=== PATIENT | male | born 1980 | race Hispanic/Latino ===

== ENCOUNTER 2017-12-04 14:02 | Emergency (ER) | payer OTHER, MEDICARE ==
[2017-12-04 19:44] LABS: Bilirubin,Urine NEG (Negative); Blood,Urine SM (Negative); Color,Urine Yellow (Yellow); Urobilinogen,Urine < 2.0 mg/dL (<2.0)
--- NOTE | 2017-12-04 20:06 | Emergency Department Report ---
ED General Adult HPI - General Chief complaint: Psych Stated complaint: SUICIDAL ATTEMPT Time Seen by Provider: 12/04/17 19:42 Source: patient Mode of arrival: Ambulatory Limitations: No Limitations - History of Present Illness Initial comments: This is a 37-year-old male who is previously unknown to this provider, has a past medical history of right-sided cadaveric renal transplant, on immune modulating medication, who presents to the ER with resolved suicidality. The patient indicates that his threatened to divorce him, this made him very upset and he thought about shooting himself with a gun. He currently denies headache, neck pain, chest pain, abdominal pain, shortness of breath,, cephalic , he indicates that he is not suicidal at this time. He further indicates he has not tried to overdose, and he also indicates that he feels remorseful about the "events that happened." -: Sudden Consistency: now resolved Improves with: none Worsens with: none Associated Symptoms: denies: confusion, chest pain, cough, diaphoresis, fever/ chills, headaches, loss of appetite, malaise, nausea/vomiting, rash, seizure, shortness of breath, syncope, weakness - Related Data Home Medications Medication Instructions Recorded Confirmed Last Taken Metoprolol [Lopressor TAB] 1 tab PO BID 12/04/17 12/04/17 12/04/17 09:00 Mycophenolate [Cellcept] 2 tab PO BID 12/04/17 12/04/17 12/04/17 09:00 NIFEdipine [Nifedipine ER] 60 mg PO BID 12/04/17 12/04/17 12/04/17 09:00 Prednisone 5 mg PO DAILY 12/04/17 12/04/17 12/04/17 09:00 Sod Phos Di, [place]/K Phos [place] 2 tab PO 3XW 12/04/17 12/04/17 12/04/17 09:00 [Phospho-Crissy 250 Neutral Tab] Tacrolimus [Prograf] 5 mg PO Q12H 12/04/17 12/04/17 12/04/17 09:00 Allergies Allergy/AdvReac Type Severity Reaction Status Date / Time No Known Allergies Allergy Verified 06/21/13 18:22 ED Review of Systems ROS: Stated complaint: SUICIDAL ATTEMPT Other details as noted in HPI Comment: All other systems reviewed and negative Psychiatric: depression. denies: anxiety, auditory hallucinations, visual hallucinations, homicidal thoughts ED Past Medical Hx - Past Medical History Hx Hypertension: Yes (2007, CURRENTLY UNCONTROLLED) Hx Renal Disease: Yes (2009) Hx Seizures: No Additional medical history: anemia - Surgical History Additional Surgical History: hernia repair, Kidney transplant - Social History Smoking Status: Never Smoker Substance Use Type: Alcohol - Medications Home Medications: Home Medications Medication Instructions Recorded Confirmed Last Taken Type Metoprolol [Lopressor TAB] 1 tab PO BID 12/04/17 12/04/17 12/04/17 09:00 History Mycophenolate [Cellcept] 2 tab PO BID 12/04/17 12/04/17 12/04/17 09:00 History NIFEdipine [Nifedipine ER] 60 mg PO BID 12/04/17 12/04/17 12/04/17 09:00 History Prednisone 5 mg PO DAILY 12/04/17 12/04/17 12/04/17 09:00 History Sod Phos Di, [place]/K Phos [place] 2 tab PO 3XW 12/04/17 12/04/17 12/04/17 09:00 History [Phospho-Crissy 250 Neutral Tab] Tacrolimus [Prograf] 5 mg PO Q12H 12/04/17 12/04/17 12/04/17 09:00 History ED Physical Exam - General Limitations: No Limitations General appearance: alert, in no apparent distress - Head Head exam: Present: atraumatic, normocephalic - Eye Eye exam: Present: normal appearance, EOMI. Absent: nystagmus - ENT ENT exam: Present: normal exam, normal orophraynx, mucous membranes moist, normal external ear exam - Neck Neck exam: Present: normal inspection, full ROM - Respiratory Respiratory exam: Present: normal lung sounds bilaterally. Absent: respiratory distress - Cardiovascular Cardiovascular Exam: Present: regular rate, normal rhythm, normal heart sounds. Absent: systolic murmur, diastolic murmur, rubs, gallop - GI/Abdominal GI/Abdominal exam: Present: soft, normal bowel sounds. Absent: distended, tenderness, guarding, rebound, rigid, pulsatile mass - Rectal Rectal exam: Present: deferred - Extremities Exam Extremities exam: Present: normal inspection, full ROM, normal capillary refill. Absent: pedal edema, joint swelling, calf tenderness - Back Exam Back exam: Present: normal inspection, full ROM. Absent: tenderness, CVA tenderness (R), paraspinal tenderness, vertebral tenderness - Neurological Exam Neurological exam: Present: alert, oriented X3, CN II-XII intact, normal gait, other (Extraocular movements intact. Tongue midline. No facial droop. Facial sensation intact to light touch in the V1, V2, V3 distribution bilaterally. 5 and 5 strength in 4 extremities.. Sensation is intact to light touch in 4 extremities.). Absent: motor sensory deficit - Psychiatric Psychiatric exam: Present: normal affect, normal mood - Skin Skin exam: Present: warm, dry, intact, normal color. Absent: rash ED Course Vital Signs 12/04/17 14:21 Temperature 98.1 F Pulse Rate 80 Respiratory 18 Rate Blood Pressure 156/98 [Left] O2 Sat by Pulse 99 Oximetry ED Medical Decision Making - Lab Data Result diagrams: 12/04/17 19:44 12/04/17 19:44 Vital Signs 12/04/17 14:21 Temperature 98.1 F Pulse Rate 80 Respiratory 18 Rate Blood Pressure 156/98 [Left] O2 Sat by Pulse 99 Oximetry Lab Results 12/04/17 12/04/17 12/04/17 Range/Units 19:44 19:44 19:44 WBC (4.5-11.0) K/mm3 RBC (3.65-5.03) M/mm3 Hgb (11.8-15.2) gm/dl Hct (35.5-45.6) % MCV (84-94) fl MCH (28-32) pg MCHC (32-34) % RDW (13.2-15.2) % Plt Count (140-440) K/mm3 Lymph % (Auto) (13.4-35.0) % [place] % (Auto) (0.0-7.3) % Eos % (Auto) (0.0-4.3) % Baso % (Auto) (0.0-1.8) % Lymph # (1.2-5.4) K/mm3 [place] # (0.0-0.8) K/mm3 Eos # (0.0-0.4) K/mm3 Baso # (0.0-0.1) K/mm3 Seg Neutrophils % (40.0-70.0) % Seg Neutrophils # (1.8-7.7) K/mm3 Sodium 139 (137-145) mmol/L Potassium 5.1 H (3.6-5.0) mmol/L Chloride 105.9 (98-107) mmol/L Carbon Dioxide 23 (22-30) mmol/L Anion Gap 15 mmol/L BUN 27 H (9-20) mg/dL Creatinine 1.2 (0.8-1.5) mg/dL Estimated GFR > 60 ml/min BUN/Creatinine Ratio 23 % Glucose 103 H (75-100) mg/dL Calcium 9.5 (8.4-10.2) mg/dL Urine Color (Yellow) Urine Turbidity (Clear) Urine pH (5.0-7.0) Ur Specific [place] (1.003-1.030) Urine Protein (Negative) mg/dL Urine Glucose (UA) (Negative) mg/dL Urine Ketones (Negative) mg/dL Urine Blood (Negative) Urine Nitrite (Negative) Urine Bilirubin (Negative) Urine Urobilinogen (<2.0) mg/dL Ur Leukocyte Esterase (Negative) Urine WBC (Auto) (0.0-6.0) /HPF Urine RBC (Auto) (0.0-6.0) /HPF U Epithel Cells (Auto) (0-13.0) /HPF Salicylates < 0.3 L (2.8-20.0) mg/dL Urine Opiates Screen Urine Methadone Screen Acetaminophen < 5.0 L (10.0-30.0) ug/mL Ur Barbiturates Screen Ur Phencyclidine Scrn Ur Amphetamines Screen U Benzodiazepines Scrn Urine Cocaine Screen U Marijuana (THC) Screen Drugs of Abuse Note Plasma/Serum Alcohol (0-0.07) % 12/04/17 12/04/17 12/04/17 Range/Units 19:44 19:44 Unknown WBC 8.0 (4.5-11.0) K/mm3 RBC 4.59 (3.65-5.03) M/mm3 Hgb 13.9 (11.8-15.2) gm/dl Hct 41.0 (35.5-45.6) % MCV 89 (84-94) fl MCH 30 (28-32) pg MCHC 34 (32-34) % RDW 13.9 (13.2-15.2) % Plt Count 188 (140-440) K/mm3 Lymph % (Auto) 14.6 (13.4-35.0) % [place] % (Auto) 8.7 H (0.0-7.3) % Eos % (Auto) 0.3 (0.0-4.3) % Baso % (Auto) 0.5 (0.0-1.8) % Lymph # 1.2 (1.2-5.4) K/mm3 [place] # 0.7 (0.0-0.8) K/mm3 Eos # 0.0 (0.0-0.4) K/mm3 Baso # 0.0 (0.0-0.1) K/mm3 Seg Neutrophils % 75.9 H (40.0-70.0) % Seg Neutrophils # 6.1 (1.8-7.7) K/mm3 Sodium (137-145) mmol/L Potassium (3.6-5.0) mmol/L Chloride (98-107) mmol/L Carbon Dioxide (22-30) mmol/L Anion Gap mmol/L BUN (9-20) mg/dL Creatinine (0.8-1.5) mg/dL Estimated GFR ml/min BUN/Creatinine Ratio % Glucose (75-100) mg/dL Calcium (8.4-10.2) mg/dL Urine Color Yellow (Yellow) Urine Turbidity Clear (Clear) Urine pH 5.0 (5.0-7.0) Ur Specific [place] 1.021 (1.003-1.030) Urine Protein 30 mg/dl (Negative) mg/dL Urine Glucose (UA) Neg (Negative) mg/dL Urine Ketones Neg (Negative) mg/dL Urine Blood Sm (Negative) Urine Nitrite Neg (Negative) Urine Bilirubin Neg (Negative) Urine Urobilinogen < 2.0 (<2.0) mg/dL Ur Leukocyte Esterase Neg (Negative) Urine WBC (Auto) 1.0 (0.0-6.0) /HPF Urine RBC (Auto) 3.0 (0.0-6.0) /HPF U Epithel Cells (Auto) < 1.0 (0-13.0) /HPF Salicylates (2.8-20.0) mg/dL Urine Opiates Screen Urine Methadone Screen Acetaminophen (10.0-30.0) ug/mL Ur Barbiturates Screen Ur Phencyclidine Scrn Ur Amphetamines Screen U Benzodiazepines Scrn Urine Cocaine Screen U Marijuana (THC) Screen Drugs of Abuse Note Plasma/Serum Alcohol < 0.01 (0-0.07) % 12/04/17 Range/Units Unknown WBC (4.5-11.0) K/mm3 RBC (3.65-5.03) M/mm3 Hgb (11.8-15.2) gm/dl Hct (35.5-45.6) % MCV (84-94) fl MCH (28-32) pg MCHC (32-34) % RDW (13.2-15.2) % Plt Count (140-440) K/mm3 Lymph % (Auto) (13.4-35.0) % [place] % (Auto) (0.0-7.3) % Eos % (Auto) (0.0-4.3) % Baso % (Auto) (0.0-1.8) % Lymph # (1.2-5.4) K/mm3 [place] # (0.0-0.8) K/mm3 Eos # (0.0-0.4) K/mm3 Baso # (0.0-0.1) K/mm3 Seg Neutrophils % (40.0-70.0) % Seg Neutrophils # (1.8-7.7) K/mm3 Sodium (137-145) mmol/L Potassium (3.6-5.0) mmol/L Chloride (98-107) mmol/L Carbon Dioxide (22-30) mmol/L Anion Gap mmol/L BUN (9-20) mg/dL Creatinine (0.8-1.5) mg/dL Estimated GFR ml/min BUN/Creatinine Ratio % Glucose (75-100) mg/dL Calcium (8.4-10.2) mg/dL Urine Color (Yellow) Urine Turbidity (Clear) Urine pH (5.0-7.0) Ur Specific [place] (1.003-1.030) Urine Protein (Negative) mg/dL Urine Glucose (UA) (Negative) mg/dL Urine Ketones (Negative) mg/dL Urine Blood (Negative) Urine Nitrite (Negative) Urine Bilirubin (Negative) Urine Urobilinogen (<2.0) mg/dL Ur Leukocyte Esterase (Negative) Urine WBC (Auto) (0.0-6.0) /HPF Urine RBC (Auto) (0.0-6.0) /HPF U Epithel Cells (Auto) (0-13.0) /HPF Salicylates (2.8-20.0) mg/dL Urine Opiates Screen Presumptive negative Urine Methadone Screen Presumptive negative Acetaminophen (10.0-30.0) ug/mL Ur Barbiturates Screen Presumptive negative Ur Phencyclidine Scrn Presumptive negative Ur Amphetamines Screen Presumptive positive U Benzodiazepines Scrn Presumptive positive Urine Cocaine Screen Presumptive negative U Marijuana (THC) Screen Presumptive negative Drugs of Abuse Note Disclamer Plasma/Serum Alcohol (0-0.07) % - Medical Decision Making Differential diagnosis, including but not limited to: Suicidality, mood disorder , depression, medical clearance for psychiatric placement Assessment and plan: 37-year-old male with history of suicidality, reportedly holding a gun and threatened to kill himself. He is currently depressed, and withdrawn, but is not homicidal or suicidal, however uncertain if he can contract for safety. It is also uncertain whether not he can go home safely. Therefore he'll be placed on a 1013. He is not decompensated medically, and he is medically suitable at this time for psychiatric evaluation, consultation, and placement at this time. The crisis team has been informed. We will continue the current outpatient medicines. He also reports that he followed up with his outpatient transplant specialists a few weeks ago for routine laboratory studies and indicated that they were within normal limits. Critical care attestation.: If time is entered above; I have spent that time in minutes in the direct care of this critically ill patient, excluding procedure time. ED Disposition Clinical Impression: Medical clearance for psychiatric admission Disposition: [id number] PSY HOSP/PSY UNIT Is pt being admited?: No Does the pt Need Aspirin: No Condition: Good Referrals: PRIMARY CARE, [Primary Care Provider] - 3-5 Days
[2017-12-04 20:08] LABS: Basophils % (Auto) 0.5 % (0.0-1.8); Eosinophils % (Auto) 0.3 % (0.0-4.3); Hemoglobin 13.9 gm/dl (11.8-15.2); Lymphocytes # (Auto) 1.2 K/mm3 (1.2-5.4); Lymphocytes % (Auto) 14.6 % (13.4-35.0); Mean Corpuscular HGB Conc 34 % (32-34); Mean Corpuscular Hemoglobin 30 pg (28-32); Mean Corpuscular Volume 89 fl (84-94); Monocytes # (Auto) 0.7 K/mm3 (0.0-0.8); Monocytes % (Auto) 8.7 % (0.0-7.3); Platelet Count 188 K/mm3 (140-440); Red Blood Count 4.59 M/mm3 (3.65-5.03); Red Cell Distribution Width 13.9 % (13.2-15.2)
[2017-12-04 20:09] LABS: BUN/Creatinine Ratio 23; Blood Urea Nitrogen 27 mg/dL (9-20); Calcium 9.5 mg/dL (8.4-10.2); Hemolysis Index 7
[2017-12-04 20:14] LABS: Cannabinoid Screen,Urine PRESUMPTIVE NEGATIVE; Cocaine Screen,Urine PRESUMPTIVE NEGATIVE; Methadone Screen,Urine PRESUMPTIVE NEGATIVE; Opiate Screen,Urine PRESUMPTIVE NEGATIVE
[2017-12-04 20:26] LABS: Amphetamine Screen,Urine PRESUMPTIVE POSITIVE; Benzodiazepines Screen,Urine PRESUMPTIVE POSITIVE
[2017-12-04] MEDS: LOPRESSOR PO SCH (21:45)
[2017-12-04] MEDS: CELLCEPT PO SCH (21:45)
[2017-12-04] MEDS: PROCARDIA XL PO SCH (21:45)
[2017-12-04] MEDS: PROGRAF PO SCH (22:28)
[2017-12-05] MEDS ORDERED: DELTASONE PO SCH (10:00)
[2017-12-05] MEDS: CELLCEPT PO SCH ×2 (10:28→21:38)
[2017-12-05] MEDS: PROCARDIA XL PO SCH ×2 (10:29→21:57)
[2017-12-05] MEDS: LOPRESSOR PO SCH ×2 (10:29→23:52)
[2017-12-05] MEDS: PROGRAF PO SCH ×2 (10:30→21:57)
--- NOTE | 2017-12-05 17:40 | Consultation ---
History of Present Illness - Reason for Consult Consult date: 12/05/17 Reason for consult: 1013/suicidal - Chief Complaint Chief complaint: "I'm scared." - History of Present Psychiatric Illness Mr. Conley is a 37-year-old male seen in the ER for psychiatric evaluation. He has a past medical history of right-sided cadaveric renal transplant, on immune modulating medication. He also wears hearing aids is both ears. The patient indicates that his threatened to divorce him. At this point he had a gun with intention to shoot himself. She reportedly took the gun from him and locked it in the car. This is per the record. He confirms the information. He reports being on dialysis for 8 years up until his kidney transplant 06/2017. He states he was depressed at that time and likely is now. He is withdrawn on exam and does not speak often. He is easily tearful. He reports fair sleep and appetite. He is concerned about getting his anti- rejection meds on time. Medications and Allergies Allergies Allergy/AdvReac Type Severity Reaction Status Date / Time No Known Allergies Allergy Verified 06/21/13 18:22 Home Medications Medication Instructions Recorded Confirmed Last Taken Type Metoprolol [Lopressor TAB] 1 tab PO BID 12/04/17 12/04/17 12/04/17 09:00 History Mycophenolate [Cellcept] 2 tab PO BID 12/04/17 12/04/17 12/04/17 09:00 History NIFEdipine [Nifedipine ER] 60 mg PO BID 12/04/17 12/04/17 12/04/17 09:00 History Prednisone 5 mg PO DAILY 12/04/17 12/04/17 12/04/17 09:00 History Sod Phos Di, [place]/K Phos [place] 2 tab PO 3XW 12/04/17 12/04/17 12/04/17 09:00 History [Phospho-Crissy 250 Neutral Tab] Tacrolimus [Prograf] 5 mg PO Q12H 12/04/17 12/04/17 12/04/17 09:00 History Active Meds: Active Medications Metoprolol Tartrate (Lopressor) 50 mg PO BID [facility] Last Admin: 12/05/17 10:29 Dose: 50 mg Mycophenolate Mofetil (Cellcept) 1,000 mg PO BID [facility] Last Admin: 12/05/17 10:28 Dose: 1,000 mg Nifedipine (Procardia Xl) 60 mg PO BID [facility] Last Admin: 12/05/17 10:29 Dose: 60 mg Prednisone (Deltasone) 5 mg PO DAILY [facility] Last Admin: 12/05/17 13:28 Dose: 5 mg Sodium Phosphate (K-Phos Neutral) 500 mg PO [facility] Tacrolimus (Prograf) 5 mg PO Q12HR [facility] Last Admin: 12/05/17 10:30 Dose: 5 mg Past psychiatric history - Past Medical History Past Medical History: other (see HPI) - past Psychiatric treatment and history Psych: Depression psychiatric treatment history: no previous treatment - Social History Social history: (has children), lives with family Mental Status Exam - Vital signs Last Vital Signs Temp 97.9 F 12/05/17 00:21 Pulse 71 12/05/17 10:29 Resp 18 12/05/17 00:21 BP 172/100 12/05/17 10:29 Pulse Ox 98 12/05/17 00:21 - Exam Orientation: time, place, person Affect: depressed Mood: congruent with affect Thought content: other (recent suicidal ideation) Thought Process: Intact Perceptions: none Speech: minimal response (soft) Concentration: focused Motor activity: normal Level of consciousness: alert Memory: Intact Sleep Symptoms: None Interaction: guarded Results Result Diagrams: 12/04/17 19:44 12/04/17 19:44 Abnormal lab results 12/04/17 12/04/17 12/04/17 Range/Units 19:44 19:44 19:44 [place] % (Auto) (0.0-7.3) % Seg Neutrophils % (40.0-70.0) % Potassium 5.1 H (3.6-5.0) mmol/L BUN 27 H (9-20) mg/dL Glucose 103 H (75-100) mg/dL Salicylates < 0.3 L (2.8-20.0) mg/dL Acetaminophen < 5.0 L (10.0-30.0) ug/mL 12/04/17 Range/Units 19:44 [place] % (Auto) 8.7 H (0.0-7.3) % Seg Neutrophils % 75.9 H (40.0-70.0) % Potassium (3.6-5.0) mmol/L BUN (9-20) mg/dL Glucose (75-100) mg/dL Salicylates (2.8-20.0) mg/dL Acetaminophen (10.0-30.0) ug/mL All other labs normal. Assessment and Plan Assessment and plan: Impression: Major depressive disorder He had a gun with the plan to shoot himself. Recommendation: Continue 1013 and transfer to inpatient psychiatric hospital The ER physician addressed his medical conditions and medications. Start prozac 20mg daily for depression. He is agreeable.
[2017-12-06 01:42] VITALS: BP 133/86
[2017-12-06] MEDS ORDERED: PROzac PO SCH (10:00)
[2017-12-07] MEDS ORDERED: K-PHOS NEUTRAL PO SCH (10:00)
== END 2017-12-06 01:43 ==
LOC: EEVIPCON 14:02 → ED 14:02
DX: R45.851 Suicidal ideations (principal); I10 Essential (primary) hypertension
CPT/HCPCS: 36415; 80048; 80197; 80307; 81001; 85025; 99285; G0480; J7507; J7512; 80320; J7517